=== PATIENT | female | born 2000 | race African-American/Black ===

== ENCOUNTER 2022-10-19 07:39 | Emergency (ER) | payer MEDICAID ==
[~2022-10-19] VITALS: Ht 162.6 cm; Wt 59.0 kg
[2022-10-19 07:49] VITALS: BP 114/69
[2022-10-19] MEDS ORDERED: ACETAMINOPHEN 325MG TABLET PO ONE (09:00)
[2022-10-19] MEDS ORDERED: IBUP-2028 MT (10:43)
== END 2022-10-19 10:58 | disposition home or self-care (01) ==
LOC: ER 07:39
DX: B34.9 Viral infection, unspecified (principal); Z20.822 Contact with and (suspected) exposure to COVID-19
CPT/HCPCS: 81025; 87426; 87804; 99283